=== PATIENT | female | born 1990 | race Caucasian/White ===

== ENCOUNTER 2021-10-06 20:16 | Inpatient (IN) | payer OTHER ==
[~2021-10-06] VITALS: Ht 160 cm; Wt 46.7 kg
[2021-10-06 21:31] LABS: BASOPHILS # (AUTO) 0.1 K/uL (0.0-0.2); BASOPHILS % (AUTO) 0.9 % (0.0-2.0); EOSINOPHILS % (AUTO) 0.4 % (0.0-6.0); HEMATOCRIT 23 % (33-45); HEMOGLOBIN 7.3 g/dL (11.5-14.8); LYMPHOCYTES # (AUTO) 0.4 K/uL (0.8-4.8); LYMPHOCYTES % (AUTO) 4.9 % (20.0-44.0); MEAN CORPUSCULAR HGB CONC 32 g/dl (31.0-36.0); MEAN CORPUSCULAR VOLUME 84 fL (82-100); MONOCYTES # (AUTO) 0.5 K/uL (0.1-1.30); MONOCYTES % (AUTO) 5.9 % (2.0-12.0); NEUTROPHILS # (AUTO) 7.7 K/uL (1.8-8.9); NEUTROPHILS % (AUTO) 87.9 % (43.0-81.0); PLATELET COUNT (AUTO) 488 K/uL (150-450); RED BLOOD CELL COUNT(AUTO) 2.72 MIL/uL (4.0-5.2); WHITE BLOOD COUNT (AUTO) 8.8 K/uL (4.3-11.0)
[2021-10-06 21:40] LABS: CREATININE 0.6 mg/dL (0.6-1.3); POTASSIUM 3.6 mmol/L (3.5-5.1)
[2021-10-06 21:47] LABS: ALBUMIN 2.6 g/dL (3.4-5.0); BILIRUBIN,TOTAL 0.4 mg/dL (0.2-1.0); TOTAL PROTEIN, SERUM 6.6 g/dL (6.4-8.2)
[2021-10-06] MEDS ORDERED: MAGNESIUM HYDROXIDE 30 ML UDC PO PRN (22:00)
[2021-10-06] MEDS ORDERED: Z GUARD REMEDY 4 OZ OINT TP PRN (22:00)
[2021-10-06] MEDS ORDERED: MORPHINE SULFATE INJ 2 MG/ML DISP.SYRIN IV PRN (22:00)
[2021-10-06] MEDS ORDERED: MAG HYDROX/AL HYDROX/SIMETH 30 ML UDC PO PRN (22:00)
[2021-10-06] MEDS ORDERED: ONDANSETRON HCL/PF 4 MG/2 ML VIAL IVP PRN (22:00)
[2021-10-06 23:00] VITALS: BP 109/67
[2021-10-06 23:17] LABS: BAND % (MANUAL) 1 % (0.0-5.0); LYMPHOCYTES % (MANUAL) 5 % (16-48); MONOCYTES % (MANUAL) 3 % (0-11.0); NEUTROPHILS % (MANUAL) 91 (42-76)
[2021-10-06] MEDS: oxyCODONE IR immediate release 5 MG PO PRN (23:22)
[2021-10-07] MEDS: oxyCODONE IR immediate release 5 MG PO PRN (03:45)
[2021-10-07 03:59] VITALS: BP 98/58
[2021-10-07 04:14] VITALS: BP 103/64
[2021-10-07 06:49] VITALS: BP 102/62
[2021-10-07] MEDS ORDERED: PANTOPRAZOLE 40 MG TABLET.DR PO SCH (07:30)
[2021-10-07] MEDS ORDERED: OXYC10TA49 PO (08:41)
[2021-10-07] MEDS ORDERED: NORT50CA PO (08:41)
[2021-10-07] MEDS ORDERED: MORP15TA7 PO (08:41)
[2021-10-07 09:20] LABS: BASOPHILS # (AUTO) 0.1 K/uL (0.0-0.2); BASOPHILS % (AUTO) 0.9 % (0.0-2.0); EOSINOPHILS % (AUTO) 0.7 % (0.0-6.0); HEMATOCRIT 25 % (33-45); LYMPHOCYTES # (AUTO) 0.4 K/uL (0.8-4.8); LYMPHOCYTES % (AUTO) 6.4 % (20.0-44.0); MEAN CORPUSCULAR HGB CONC 32 g/dl (31.0-36.0); MEAN CORPUSCULAR VOLUME 84 fL (82-100); MONOCYTES # (AUTO) 0.5 K/uL (0.1-1.30); MONOCYTES % (AUTO) 8.1 % (2.0-12.0); NEUTROPHILS # (AUTO) 5.3 K/uL (1.8-8.9); NEUTROPHILS % (AUTO) 83.9 % (43.0-81.0); PLATELET COUNT (AUTO) 401 K/uL (150-450); RED BLOOD CELL COUNT(AUTO) 3.03 MIL/uL (4.0-5.2); WHITE BLOOD COUNT (AUTO) 6.3 K/uL (4.3-11.0)
[2021-10-07 09:35] LABS: CALCIUM, SERUM 9.5 mg/dL (8.5-10.1); CREATININE 0.6 mg/dL (0.6-1.3); MAGNESIUM 1.9 mg/dL (1.8-2.4); PHOSPHORUS 3.6 mg/dL (2.5-4.9); POTASSIUM 3.9 mmol/L (3.5-5.1)
[2021-10-07 09:47] LABS: THYROID STIMULATING HORMONE 3.42 uIU/mL (0.358-3.74)
== END 2021-10-07 12:00 | disposition home or self-care (01) | DRG 110 ==
LOC: ER 20:30 → MED 21:57
PROVIDERS: ADMIT Nurse Practitioner Acute Care; ATTEND Internal Medicine
PROC: 30233N1 Transfusion of Nonautologous Red Blood Cells into Peripheral Vein, Percutaneous Approach (ICD-10-PCS; principal; 2021-10-07)
DX: C07 Malignant neoplasm of parotid gland (principal); R64 Cachexia; C79.51 Secondary malignant neoplasm of bone; E43 Unspecified severe protein-calorie malnutrition; C78.7 Secondary malignant neoplasm of liver and intrahepatic bile duct; E87.1 Hypo-osmolality and hyponatremia; E88.09 Other disorders of plasma-protein metabolism, not elsewhere classified; C79.31 Secondary malignant neoplasm of brain; D63.0 Anemia in neoplastic disease; Z85.818 Personal history of malignant neoplasm of other sites of lip, oral cavity, and pharynx; Z68.1 Body mass index [BMI] 19.9 or less, adult; R74.01 Elevation of levels of liver transaminase levels; M62.50 Muscle wasting and atrophy, not elsewhere classified, unspecified site; Z92.21 Personal history of antineoplastic chemotherapy; Z92.3 Personal history of irradiation; Z20.822 Contact with and (suspected) exposure to COVID-19
CPT/HCPCS: 36415; 80048-TC; 80053-TC; 83735-TC; 84100-TC; 84443-TC; 85025-TC; 85730-TC; 86850-TC; 87081-TC; G0378; J2270; J7050; P9016